=== PATIENT | male | born 1950 | race Hispanic/Latino ===

== ENCOUNTER 2018-11-11 15:42 | Inpatient (IN) | payer MEDICARE, BC ==
[2018-11-11] MEDS ORDERED: Ondansetron PF 4 MG/2 ML Vial SLOW IVP PRN (19:52)
[2018-11-11 20:20] LABS: #Basophils 0.1 thou/uL (0.0-0.2); #Eosinphils 0.3 thou/uL (0.0-0.7); #Lymphocytes 2.8 thou/uL (1.20-3.40); #Monocytes 0.7 thou/uL (0.11-0.59); #Neutrophils 6.4 thou/uL (1.40-6.50); %Basophils 0.5 % (0.0-1.0); %Eosinophils 2.7 % (0.0-10.0); %Lymphocytes 27.2 % (21.0-51.0); %Monocytes 6.7 % (0.0-10.0); %Neutrophils 62.8 % (42.0-75.0); Hemoglobin 15.4 g/dL (14.0-18.0); Mean Corpuscular HGB CONC 35.7 g/dL (32.0-36.0); Mean Corpuscular Hemoglobin 31.8 pg (27.0-31.0); Mean Platelet Volume 8.1 fL (7.4-10.4); Platelet Count 270 thou/uL (130-400); Red Blood Cell (RBC) Count 4.83 mill/uL (4.70-6.10); White Blood Cell (WBC) Count 10.2 thou/uL (4.8-10.8)
[2018-11-11 20:26] LABS: PTT 32.2 SEC (22.9-36.1); Prothrombin Time 12.8 SEC (12.0-14.7)
[2018-11-11 20:38] LABS: Anion Gap 16 mmol/L (10-20); BUN (Urea Nitrogen) 39 mg/dL (8.4-25.7); Calc. Creatinine Clearance 0 mL/min (70-130); Calcium 10.3 mg/dL (7.8-10.44); Carbon Dioxide 22 mmol/L (23-31); Chloride 102 mmol/L (98-107); Estimated GFR-MDRD 46; Glucose 160 mg/dL (80-115); Potassium 3.6 mmol/L (3.5-5.1); Sodium 136 mmol/L (136-145)
[2018-11-11] MEDS: Sodium Chloride 0.9% 1,000 ML IV SCH (21:00)
[2018-11-11] MEDS: Atorvastatin Calcium 20 MG TAB PO SCH (22:00)
[2018-11-11] MEDS: Carvedilol 3.125 MG TAB PO SCH (22:00)
[2018-11-11] MEDS: HYDROcodone/Acetaminophen 5/325 mg Tablet PO PRN (22:08)
[2018-11-11] MEDS: Lorazepam 1 MG TAB PO PRN (22:09)
[2018-11-11] MEDS: tiZANidine HCl 4 MG TAB PO PRN (22:54)
[2018-11-12 01:20] VITALS: BMI 29.4
[2018-11-12] MEDS: Morphine 2 MG/ML SYRINGE SLOW IVP PRN ×2 (01:30→18:24)
[2018-11-12] MEDS ORDERED: Fentanyl 100 MCG/2 ML VIAL ONE ×2 (06:24→11:58)
[2018-11-12] MEDS ORDERED: Thrombin 5000 UNITS/5 ML VIAL ONE (06:39)
[2018-11-12] MEDS ORDERED: Sodium Chloride 0.9% 10 ML ONE (06:39)
[2018-11-12] MEDS ORDERED: Bacitracin Zinc Ointment 30 gm TUBE ONE (06:39)
[2018-11-12] MEDS ORDERED: ceFAZolin Sodium (SDC) 2 GM/100 ML BAG ONE (06:52)
[2018-11-12] MEDS ORDERED: Famotidine/PF 20 mg/2ml Vial ONE (07:06)
[2018-11-12] MEDS ORDERED: HYDROmorphone 2 MG/ML VIAL ONE ×2 (07:55→11:09)
[2018-11-12] MEDS ORDERED: Ondansetron PF 4 MG/2 ML Vial ONE (08:00)
[2018-11-12] MEDS ORDERED: Non-Formulary Item 1 EACH (Sitagliptin Phos/Metformin Hcl [Janumet] 1 TABLET) PO SCH (08:00)
[2018-11-12] MEDS ORDERED: metFORMIN 500 MG TAB PO SCH (08:00)
[2018-11-12] MEDS ORDERED: PROPOFOL 200 MG/20 ML VIAL ONE (08:00)
[2018-11-12] MEDS ORDERED: Dexamethasone 20 MG/5 ML VIAL ONE (08:00)
[2018-11-12] MEDS ORDERED: Alogliptin 6.25 MG TAB PO SCH (08:00)
[2018-11-12] MEDS ORDERED: Glycopyrrolate 0.2 MG/ML 5 ML SYRINGE ONE (08:00)
[2018-11-12] MEDS ORDERED: PHENYLEPHRINE-NS 100 MCG/ML 10 ML SYRINGE ONE (08:00)
[2018-11-12] MEDS ORDERED: Lidocaine 1% PF 5 ML VIAL ONE (08:00)
[2018-11-12] MEDS ORDERED: Rocuronium Bromide 10 MG/ML (10ML VIAL) ONE (08:00)
--- NOTE | 2018-11-12 10:45 | OP ---
DATE OF PROCEDURE: 11/12/2018 LOCATION: OR 12. WOUND CLASSIFICATION: Type 1 wound. CONSUMER AFFAIRS SPECIALIST: Jason Sheriff PA-C PREPROCEDURE DIAGNOSIS: Multilevel lumbar stenosis with lumbar disk extrusion with low back and leg pain with gait abnormality. POSTPROCEDURE DIAGNOSIS: Multilevel lumbar stenosis with lumbar disk extrusion with low back and leg pain with gait abnormality. PROCEDURES PERFORMED: 1. L2-L3, L3-L4, and L4-L5 laminectomies, partial facetectomies, and foraminotomies. 2. L2-L3 diskectomy. 3. Use of operative microscope for microdissection. 4. Left L5-S1 hemilaminotomy and foraminotomy. DESCRIPTION OF PROCEDURE: After informed consent was obtained from the patient, the patient was brought to the OR. Proper patient, pause, and identification were carried out. He was placed under excellent general endotracheal anesthesia and positioned prone on the OR table. All appropriate points were padded. We identified the L2, L3, L4, L5, and S1 dorsal spines and lamina. A linear lynda was made over this region. This area was sterilely cleansed, prepared, and draped. Proper patient, pause, and identification were carried out. The wound was then opened with a combination of sharp, monopolar, and blunt dissection. The L2, L3, L4, L5, and S1 dorsal spines and lamina were exposed. Localization film confirmed area of interest. We then performed L2, L3, L4, and L5 laminectomies, partial facetectomies, and foraminotomies with excellent decompression of common dural tube and nerve roots. We then did a left L5-S1 hemilaminotomy and foraminotomy for decompression of left S1 nerve root. We then turned our attention for the use of operative microscope for microdissection with gentle retraction, working around the L3 nerve roots. We removed multiple disk fragments and had excellent decompression of common dural tube and episcopalian of CSF flow. Copious irrigation occurred throughout as did maximizing hemostasis. There was no CSF leak. The wound was closed in anatomic layers following sprinkling of vancomycin powder. The patient was then emerged from anesthesia. Job ID: [id number]
[2018-11-12] MEDS ORDERED: HYDROmorphone 2 MG/ML VIAL SLOW IVP PRN (10:57)
[2018-11-12] MEDS ORDERED: Meperidine HCl/PF 25 MG/ML VIAL SLOW IVP PRN (10:57)
[2018-11-12] MEDS ORDERED: PACU-Morphine 4MG/ML VIAL SLOW IVP PRN (10:57)
[2018-11-12] MEDS ORDERED: Promethazine HCl 25 MG/ML VIAL SLOW IVP PRN (10:57)
[2018-11-12] MEDS ORDERED: Ondansetron HCl/PF 4 MG/2 ML Vial IVP PRN (10:57)
[2018-11-12] MEDS ORDERED: Morphine Sulfate 2 MG/ML SYRINGE SLOW IVP PRN (10:57)
[2018-11-12] MEDS ORDERED: Promethazine HCl 25 MG/ML VIAL IM PRN (10:57)
[2018-11-12] MEDS: Lisinopril/Hydrochlorothiazide 20 mg/12.5 mg Tablet PO SCH (13:15)
[2018-11-12] MEDS: Carvedilol 3.125 MG TAB PO SCH ×2 (13:15→21:47)
[2018-11-12] MEDS: Pioglitazone HCl 15 MG TAB PO SCH (13:15)
[2018-11-12] MEDS ORDERED: Dextrose 50% Abboject 50 ML SYRINGE SLOW IVP PRN (13:17)
[2018-11-12] MEDS ORDERED: Dextrose 5% in Water 1,000 ML IV PRN (13:17)
[2018-11-12] MEDS ORDERED: hydrALAZINE 20 MG/ML VIAL SLOW IVP PRN (13:21)
[2018-11-12] MEDS: HYDROcodone/Acetaminophen 5/325 mg Tablet PO PRN ×2 (13:42→21:47)
[2018-11-12] MEDS: Sodium Chloride 0.9% 1,000 ML IV SCH (13:42)
[2018-11-12] MEDS: Insulin Regular 300 UNITS/3 ML VIAL SC PRN ×3 (13:55→21:47)
[2018-11-12] MEDS: CEFAZOLIN 2 GM, Admixture Fee 1 EACH in Sodium Chloride 0.9% 100 ML IVPB SCH ×2 (16:26→23:54)
[2018-11-12] MEDS: Alogliptin 6.25 MG TAB PO SCH (18:24)
[2018-11-12] MEDS ORDERED: Prevnar 13-Val Conj/PF 0.5 ML SYRINGE IM ONE (21:00)
[2018-11-12] MEDS: Atorvastatin Calcium 20 MG TAB PO SCH (21:47)
[2018-11-13] MEDS: HYDROcodone/Acetaminophen 5/325 mg Tablet PO PRN ×3 (04:31→16:31)
[2018-11-13] MEDS: Acetaminophen 325 MG TAB PO PRN ×2 (04:31→21:25)
[2018-11-13 05:44] LABS: Hemoglobin 11.8 g/dL (14.0-18.0); Mean Corpuscular HGB CONC 35.4 g/dL (32.0-36.0); Mean Corpuscular Hemoglobin 31.8 pg (27.0-31.0); Mean Corpuscular Volume 89.8 fL (78.0-98.0); Mean Platelet Volume 8.1 fL (7.4-10.4); Platelet Count 244 thou/uL (130-400); RBC Distribution Width 12.1 % (11.5-14.5); White Blood Cell (WBC) Count 14.4 thou/uL (4.8-10.8)
[2018-11-13 06:08] LABS: Anion Gap 13 mmol/L (10-20); BUN (Urea Nitrogen) 29 mg/dL (8.4-25.7); Calc. Creatinine Clearance 87 mL/min (70-130); Calcium 9.1 mg/dL (7.8-10.44); Carbon Dioxide 22 mmol/L (23-31); Chloride 106 mmol/L (98-107); Estimated GFR-MDRD 77; Glucose 153 mg/dL (80-115); Potassium 3.4 mmol/L (3.5-5.1); Sodium 138 mmol/L (136-145)
[2018-11-13] MEDS: CEFAZOLIN 2 GM, Admixture Fee 1 EACH in Sodium Chloride 0.9% 100 ML IVPB SCH ×2 (06:58→16:33)
[2018-11-13] MEDS: Insulin Regular 300 UNITS/3 ML VIAL SC PRN ×4 (06:58→21:26)
--- NOTE | 2018-11-13 08:13 | HP ---
CHIEF COMPLAINT: Multilevel lumbar spinal canal stenosis with low back pain and leg pain, causing ataxia and paresthesia. HISTORY OF PRESENT ILLNESS: Mr. Silverio is a very pleasant 68-year-old gentleman with past medical history severe lumbar spinal stenosis, which had been affecting his quality of life and interfering with activities of daily living. The patient has tried medical management for this and thus far it has failed. The patient brought in for elective lumbar spinal surgery on 11/12/[address] Hernandez, Please see full operative report for details. The patient tolerated the procedure well without intraoperative complications. I find the patient in the orthopedic unit post operatively. The patient is lying in bed, resting comfortably surrounded by his family and friends. The patient does have some pain postoperatively, though it is overly controlled on current medication regimen. The patient is breathing well. The patient states that prior to surgery he was having difficulty lifting his left leg with severe numbness and tingling, however, now with the surgery, he states that he is feeling much better. He is able to lift leg off the bed without difficulty. No longer having numbness and tingling. Able to void bladder without difficulty. Has not had BM yet. PAST MEDICAL HISTORY: 1. Severe lumbar spinal stenosis 2. Ataxia - secondary to above 3. Low back pain - secondary to above 4. LE paresthesia - secondary to above 5. DM - uncontrolled 6. HTN 7. HLD 8. Osteoarthritis REVIEW OF SYSTEMS: A 10-point review of systems was completed and negative except as mentioned in history of present illness. MEDICATIONS: 1. Omeprazole 40 mg p.o. daily. 2. Jardiance 10 mg p.o. daily. 3. Tramadol 50 mg p.o. four times per day p.r.n. 4. Simvastatin 40 mg p.o. q.a.m. 5. [place] 25 mg p.o. daily. 6. Carvedilol 25 mg one tab p.o. b.i.d. 7. Zanaflex 4 mg one p.o. q.8 p.r.n. muscle spasm. 8. [place] 5/325 one tab p.o. four times per day p.r.n. 9. Janumet one tab p.o. b.i.d. ALLERGIES: NO KNOWN DRUG ALLERGIES. PHYSICAL EXAMINATION: VITAL SIGNS: Temperature 97.9, pulse 71, respirations 16, 02 saturations 98% on room air, blood pressure 146/72. GENERAL: The patient is well developed, alert and oriented x3, in no apparent distress. HEENT: Head is atraumatic, normocephalic. PERRLA, EOMI. Oropharynx is without exudates or inflammation. CARDIAC: S1, S2 present. No appreciated murmurs, rubs, or gallops. LUNGS: Clear to auscultation bilaterally without rales, rhonchi, or wheezing. ABDOMEN: Soft, nontender, nondistended. No guarding or rigidity. BACK: There is a clean and dry bandage over the lumbar spine that was freshly placed, but does not demonstrate any blood soaking or drainage. EXTREMITIES: No significant edema. Pulses intact. NEUROLOGIC: Cranial nerves 2 through 12 grossly intact. Strength is slightly diminished in the lower extremities, though the patient states that it is much better than before the operation. Strength in the upper extremities is preserved and symmetric. SKIN: No lesions or rashes. PSYCHIATRIC: Normal affect. The patient is alert and oriented to self, location , time, and situation. LABORATORY DATA: WBC 10.2, RBC 4.8, hemoglobin 15.4, hematocrit 43.0, platelets 270. PT 12.8, INR 1.0, PTT 32.2. Sodium 136, potassium 3.6, chloride 102, carbon dioxide 22, anion gap 12, blood urea nitrogen 39, creatinine 1.5, estimated GFR 46, glucose 160, calcium 10.3. ASSESSMENT: 1. Severe lumbar spinal canal stenosis with multilevel lumbar disk protrusion resulting in low back pain. 2. Low back pain. 3. Ataxia. 4. Lower extremity paresthesias. 5. Diabetes mellitus, uncontrolled. 6. Hypertension. 7. Hyperlipidemia. PLAN: 1. Admit to orthopedic unit. 2. Surgery following, recommendations, perioperative care, pain control, PT/ OT 3. Continue home medications as able. 4. Insulin sliding scale coverage to control hyperglycemia. 5. P.r.n. medications for elevated blood pressure as needed. 6. DVT prophylaxis and GI prophylaxis. 7. Incentive spirometer q.1 hour while awake. Thank you Dr. Hernandez for allowing us to participate in the care of this patient. Job ID: [id number] [facility]
[2018-11-13] MEDS: Pioglitazone HCl 15 MG TAB PO SCH (08:34)
[2018-11-13] MEDS: Alogliptin 6.25 MG TAB PO SCH ×2 (08:34→16:30)
[2018-11-13] MEDS: metFORMIN 500 MG TAB PO SCH ×2 (08:34→16:30)
[2018-11-13] MEDS: tiZANidine HCl 4 MG TAB PO PRN ×2 (08:34→19:07)
[2018-11-13] MEDS: Lisinopril/Hydrochlorothiazide 20 mg/12.5 mg Tablet PO SCH (08:34)
[2018-11-13] MEDS: Carvedilol 3.125 MG TAB PO SCH ×2 (08:34→21:26)
[2018-11-13] MEDS: traMADol HCl 50 MG TAB PO PRN ×2 (08:35→15:54)
--- NOTE | 2018-11-13 09:31 | PRG ---
DATE OF SERVICE: 11/13/2018 Mr. Silverio is postoperative day 1 from multilevel lumbar decompression for cauda equina compression. He states he is doing very well and is very happy at the surgery, moves his lower extremities without deficit. He is already mobilizing and voiding. He does not have satisfactory help at home as he continues to recover from severe stenosis of his cauda equina and recent falls as such I have recommended inpatient rehab. Job ID: [id number]
[2018-11-13] MEDS: Sodium Chloride 0.9% 1,000 ML IV SCH ×2 (10:45→22:22)
--- NOTE | 2018-11-13 11:59 | PDOC.HOSPP ---
- Subjective Subjective: Patient seen and examined. Progressing well post op. No longer having numbness and tingling in the lower extremity. Able to get up out of bed to go to the restroom. Expected post operative pain. We will plan for rehab placement if able through insurance. - Objective Vital Signs & Weight: Vital Signs (12 hours) Temp Pulse Resp BP BP Pulse Ox 11/13/18 11:41 99.0 F 71 16 107/62 94 L 11/13/18 08:34 80 161/75 H 11/13/18 07:17 98.3 F 80 16 161/75 H 95 11/13/18 03:33 97.9 F 80 16 147/72 H 98 Weight Weight 188 lb I&O: 11/12/18 11/13/18 11/14/18 06:59 06:59 06:59 Intake Total 1 4095 Output Total 2150 Balance 1 1945 Result Diagrams: 11/13/18 04:50 11/13/18 04:50 Additional Labs: Accuchecks 11/13/18 11/13/18 11/12/18 11:43 05:39 21:08 POC Glucose 235 H 187 H 246 H 11/12/18 11/12/18 16:39 13:43 POC Glucose 388 H 346 H ROS - Medication Medications: Active Medications Generic Name Dose Route Start Last Admin Trade Name Freq PRN Reason Stop Dose Admin Acetaminophen 650 mg 11/11/18 19:50 11/13/18 04:31 Tylenol PO 650 mg Q4H PRN Administration Headache/Fever/Mild Pain Hydrocodone Bitart/Acetaminophen 1 tab 11/11/18 19:51 11/13/18 10:43 [place] 5/325 PO 1 tab Q6H PRN Administration MODERATE Pain Alogliptin Benzoate 12.5 mg 11/12/18 17:00 11/13/18 08:34 Alogliptin PO 12.5 mg BID-WM CATHERINE Administration Atorvastatin Calcium 20 mg 11/11/18 21:00 11/12/18 21:47 Lipitor PO 20 mg HS CATHERINE Administration Carvedilol 3.125 mg 11/11/18 21:00 11/13/18 08:34 Coreg PO 3.125 mg BID CATHERINE Administration Lisinopril/HCTZ 1 tab 11/12/18 09:00 11/13/18 08:34 Prinizide 20-12.5 PO 1 tab DAILY CATHERINE Administration Cefazolin Sodium 2 gm/ 100 mls @ 200 mls/hr 11/12/18 15:00 11/13/18 06:58 Miscellaneous Medication 1 IVPB 11/13/18 15:29 100 mls each/ Sodium Chloride 0700,1500,2300 CATHERINE Administration Insulin Human Regular 0 units 11/12/18 13:17 11/13/18 06:58 Humulin R SC 2 unit .MILD SLIDING SCALE PRN Administration Mild Correctional Scale Lorazepam 0.5 mg 11/11/18 20:55 11/11/18 22:09 Ativan PO 0.5 mg Q6H PRN Administration Anxiety/Agitation Metformin HCl 500 mg 11/13/18 08:00 11/13/18 08:34 Glucophage PO 500 mg BID-WM CATHERINE Administration Morphine Sulfate 2 mg 11/11/18 19:52 11/12/18 18:24 Morphine SLOW IVP 2 mg Q1H PRN Administration .SEVERE PAIN Pantoprazole Sodium 40 mg 11/12/18 09:00 11/13/18 08:34 Protonix PO 40 mg DAILY CATHERINE Administration Pioglitazone HCl 30 mg 11/12/18 09:00 11/13/18 08:34 Actos PO 30 mg DAILY CATHERINE Administration Sodium Chloride 10 ml 11/11/18 21:00 11/13/18 10:45 Flush - Normal Saline IVF Not Given Q12HR CATHERINE Tizanidine HCl 4 mg 11/11/18 19:52 11/13/18 08:34 Zanaflex PO 4 mg Q8H PRN Administration .MUSCLE SPASM Tramadol HCl 50 mg 11/11/18 19:50 11/13/18 08:35 Ultram PO 50 mg Q6H PRN Administration MILD Pain - Exam NAD, awake alert Eye: PERRL ENT: moist mucosa Neck: supple Heart: RRR, no rubs Respiratory: CTAB, no wheezes, no rales Gastrointestinal: soft, non-tender, non-distended, no rigidity Extremities: no edema Skin: normal turgor, no lesions, no rashes Neurological: CN's grossly intact, normal sensation to touch, no focal deficits Musculoskeletal: no muscle wasting Psychiatric: normal affect, A&O x 3 Hosp A/P (1) Lumbar spinal stenosis Code(s): M48.061 - SPINAL STENOSIS, LUMBAR REGION WITHOUT NEUROGENIC KAVIN Status: Acute (2) Back pain Code(s): M54.9 - DORSALGIA, UNSPECIFIED Status: Acute (3) Ataxia Code(s): R27.0 - ATAXIA, UNSPECIFIED Status: Acute (4) Paresthesia and pain of left extremity Code(s): M79.609 - PAIN IN UNSPECIFIED LIMB; R20.2 - PARESTHESIA OF SKIN Status: Acute (5) Hypertension, accelerated Code(s): I10 - ESSENTIAL (PRIMARY) HYPERTENSION Status: Acute (6) Type II diabetes mellitus Status: Acute - Plan Plan: Surgery following, recommendations appreciated Post op care Pain control PT/OT Rehab eval Stress reactive leukocytosis expected after surgery. Afebrile, no signs of acute infection. Blood sugar control with home medications and ISS Continue home medications as able DVT PPX
[2018-11-13] MEDS ORDERED: Sodium Chloride 0.9% 500 ML IV SCH (20:30)
[2018-11-13] MEDS: Atorvastatin Calcium 20 MG TAB PO SCH (21:25)
--- NOTE | 2018-11-13 23:00 | PDOC.EVN ---
Event Note - Event Note Event Note: Patient was hypotensive into the 80s systolic and symptomatic reporting dizziness and clamminess. Patient reports low fluid intake as he did not want to get up to use the restroom. He was given 1 L fluid bolus, and BP and symptoms improving. BP now 97 systolic and symptoms resolved. Will continue IV fluid resuscitation overnight.
[2018-11-14] MEDS: Acetaminophen 325 MG TAB PO PRN ×2 (06:27→21:23)
[2018-11-14] MEDS: Sodium Chloride 0.9% 1,000 ML IV SCH ×3 (06:27→21:27)
[2018-11-14] MEDS: metFORMIN 500 MG TAB PO SCH ×2 (08:01→17:25)
[2018-11-14] MEDS: Pioglitazone HCl 15 MG TAB PO SCH (08:01)
[2018-11-14] MEDS: Alogliptin 6.25 MG TAB PO SCH ×2 (08:01→17:25)
[2018-11-14] MEDS: HYDROcodone/Acetaminophen 5/325 mg Tablet PO PRN ×2 (09:27→16:41)
[2018-11-14] MEDS: Insulin Regular 300 UNITS/3 ML VIAL SC PRN (12:28)
[2018-11-14] MEDS: traMADol HCl 50 MG TAB PO PRN (12:29)
[2018-11-14] MEDS: tiZANidine HCl 4 MG TAB PO PRN (12:29)
--- NOTE | 2018-11-14 13:29 | PDOC.HOSPP ---
- Subjective Encounter Date: 11/14/18 Encounter Time: 07:20 Subjective: Pt seen for followup re: DM2. Overnight events noted. He feels better today. - Objective Vital Signs & Weight: Vital Signs (12 hours) Temp Pulse Resp BP Pulse Ox 11/14/18 11:19 98.2 F 71 16 128/67 97 11/14/18 09:20 68 130/68 11/14/18 07:31 98.3 F 73 18 125/63 98 11/14/18 03:42 97.9 F 78 16 125/64 98 Weight Weight 188 lb I&O: 11/13/18 11/14/18 11/15/18 06:59 06:59 06:59 Intake Total 4095 1425 2425 Output Total 2150 350 800 Balance 1945 1075 1625 Result Diagrams: 11/13/18 04:50 11/13/18 04:50 Additional Labs: Accuchecks 11/14/18 11/14/18 11/13/18 11:08 05:43 20:20 POC Glucose 182 H 144 H 267 H 11/13/18 15:24 POC Glucose 193 H Labs and MARs reviewed by me ROS - Review of Systems Cardiovascular: denies: chest pain, palpitations, orthopnea, paroxysmal noc. dyspnea, edema, light headedness Gastrointestinal: denies: nausea, vomitting, abdominal pain, diarrhea, constipation, melena, hematochezia - Medication Medications: Active Medications Generic Name Dose Route Start Last Admin Trade Name Freq PRN Reason Stop Dose Admin Acetaminophen 650 mg 11/11/18 19:50 11/14/18 06:27 Tylenol PO 650 mg Q4H PRN Administration Headache/Fever/Mild Pain Hydrocodone Bitart/Acetaminophen 1 tab 11/11/18 19:51 11/14/18 09:27 [place] 5/325 PO 1 tab Q6H PRN Administration MODERATE Pain Alogliptin Benzoate 12.5 mg 11/12/18 17:00 11/14/18 08:01 Alogliptin PO 12.5 mg BID-WM CATHERINE Administration Atorvastatin Calcium 20 mg 11/11/18 21:00 11/13/18 21:25 Lipitor PO 20 mg HS CATHERINE Administration Carvedilol 3.125 mg 11/11/18 21:00 11/13/18 21:26 Coreg PO Not Given BID CATHERINE Lisinopril/HCTZ 1 tab 11/12/18 09:00 11/13/18 08:34 Prinizide 20-12.5 PO 1 tab DAILY CATHERINE Administration Sodium Chloride 1,000 mls @ 125 mls/hr 11/13/18 22:00 11/14/18 06:27 Normal Saline 0.9% IV 1,000 mls .Q8H CATHERINE Administration Insulin Human Regular 0 units 11/12/18 13:17 11/14/18 12:28 Humulin R SC 2 unit .MILD SLIDING SCALE PRN Administration Mild Correctional Scale Lorazepam 0.5 mg 11/11/18 20:55 11/11/18 22:09 Ativan PO 0.5 mg Q6H PRN Administration Anxiety/Agitation Metformin HCl 500 mg 11/13/18 08:00 11/14/18 08:01 Glucophage PO 500 mg BID-WM CATHERINE Administration Morphine Sulfate 2 mg 11/11/18 19:52 11/12/18 18:24 Morphine SLOW IVP 2 mg Q1H PRN Administration .SEVERE PAIN Pantoprazole Sodium 40 mg 11/12/18 09:00 11/14/18 08:01 Protonix PO 40 mg DAILY CATHERINE Administration Pioglitazone HCl 30 mg 11/12/18 09:00 11/14/18 08:01 Actos PO 30 mg DAILY CATHERINE Administration Sodium Chloride 10 ml 11/11/18 21:00 11/14/18 09:29 Flush - Normal Saline IVF Not Given Q12HR [facility] Tizanidine HCl 4 mg 11/11/18 19:52 11/14/18 12:29 Zanaflex PO 4 mg Q8H PRN Administration .MUSCLE SPASM Tramadol HCl 50 mg 11/11/18 19:50 11/14/18 12:29 Ultram PO 50 mg Q6H PRN Administration MILD Pain - Exam NAD Eye: anicteric sclera ENT: moist mucosa Neck: supple Heart: RRR Respiratory: CTAB Gastrointestinal: soft, non-tender Skin: normal turgor Psychiatric: normal affect, normal behavior Hosp A/P (1) Type II diabetes mellitus Status: Chronic (2) Hypotension Status: Resolved - Plan Hypotension resolved, pt maintaining good fluid intake. Blood sugars high, switch to moderate insulin sliding scale.
[2018-11-14] MEDS: Carvedilol 3.125 MG TAB PO SCH ×2 (15:20→21:26)
[2018-11-14] MEDS: Lisinopril/Hydrochlorothiazide 20 mg/12.5 mg Tablet PO SCH (15:20)
[2018-11-14] MEDS: HumaLOG 300 UNITS/3 ML VIAL SC PRN ×2 (17:24→21:27)
[2018-11-14] MEDS: Atorvastatin Calcium 20 MG TAB PO SCH (21:25)
[2018-11-15] MEDS: HYDROcodone/Acetaminophen 5/325 mg Tablet PO PRN ×3 (05:48→18:03)
[2018-11-15] MEDS: Sodium Chloride 0.9% 1,000 ML IV SCH ×3 (08:00→22:20)
[2018-11-15] MEDS: Lisinopril/Hydrochlorothiazide 20 mg/12.5 mg Tablet PO SCH (08:49)
[2018-11-15] MEDS: Alogliptin 6.25 MG TAB PO SCH ×2 (08:49→18:03)
[2018-11-15] MEDS: Carvedilol 3.125 MG TAB PO SCH ×2 (08:49→20:29)
[2018-11-15] MEDS: metFORMIN 500 MG TAB PO SCH ×2 (08:49→18:03)
[2018-11-15] MEDS: Pioglitazone HCl 15 MG TAB PO SCH (08:49)
[2018-11-15] MEDS: traMADol HCl 50 MG TAB PO PRN (08:50)
[2018-11-15] MEDS: HumaLOG 300 UNITS/3 ML VIAL SC PRN (12:18)
--- NOTE | 2018-11-15 17:34 | PDOC.HOSPP ---
- Subjective Encounter Date: 11/15/18 Encounter Time: 17:32 Subjective: Pt seen for followup re: diabetes mellitus. Feels well, no complaints. - Objective Vital Signs & Weight: Vital Signs (12 hours) Temp Pulse Resp BP BP BP Pulse Ox 11/15/18 16:58 172/83 H 11/15/18 15:56 98.2 F 67 16 172/83 H 95 11/15/18 11:11 98.3 F 69 16 158/78 H 97 11/15/18 08:49 71 165/84 H 11/15/18 07:52 98.1 F 71 18 168/84 H 97 Weight Weight 188 lb I&O: 11/14/18 11/15/18 11/16/18 06:59 06:59 06:59 Intake Total 1425 7690 Output Total 350 2925 Balance 1075 4874 Result Diagrams: 11/13/18 04:50 11/13/18 04:50 Additional Labs: Accuchecks 11/15/18 11/15/18 11/15/18 15:57 11:18 05:46 POC Glucose 146 H 159 H 119 H 11/14/18 20:44 POC Glucose 216 H labs and MARs reviewed by me GALLEGOS - Review of Systems Cardiovascular: denies: chest pain, palpitations, orthopnea, paroxysmal noc. dyspnea, edema, light headedness Gastrointestinal: denies: nausea, vomitting, abdominal pain, diarrhea, constipation, melena, hematochezia - Medication Medications: Active Medications Generic Name Dose Route Start Last Admin Trade Name Freq PRN Reason Stop Dose Admin Acetaminophen 650 mg 11/11/18 19:50 11/14/18 21:23 Tylenol PO 650 mg Q4H PRN Administration Headache/Fever/Mild Pain Hydrocodone Bitart/Acetaminophen 1 tab 11/11/18 19:51 11/15/18 12:18 [place] 5/325 PO 1 tab Q6H PRN Administration MODERATE Pain Alogliptin Benzoate 12.5 mg 11/12/18 17:00 11/15/18 08:49 Alogliptin PO 12.5 mg BID-WM CATHERINE Administration Atorvastatin Calcium 20 mg 11/11/18 21:00 11/14/18 21:25 Lipitor PO 20 mg HS CATHERINE Administration Carvedilol 3.125 mg 11/11/18 21:00 11/15/18 08:49 Coreg PO 3.125 mg BID CATHERINE Administration Lisinopril/HCTZ 1 tab 11/12/18 09:00 11/15/18 08:49 Prinizide 20-12.5 PO 1 tab DAILY CATHERINE Administration Hydralazine HCl 10 mg 11/12/18 13:21 11/15/18 16:58 Apresoline SLOW IVP 10 mg Q4H PRN Administration SBP GREATER THAN 160 Sodium Chloride 1,000 mls @ 125 mls/hr 11/13/18 22:00 11/15/18 08:00 Normal Saline 0.9% IV 1,000 mls .Q8H CATHERINE Administration Insulin Human Lispro 0 units 11/15/18 08:26 11/15/18 12:18 Humalog SC 3 unit .AGGRESSIVE SLIDING PRN Administration Aggressive Correctional Scale Lorazepam 0.5 mg 11/11/18 20:55 11/11/18 22:09 Ativan PO 0.5 mg Q6H PRN Administration Anxiety/Agitation Metformin HCl 500 mg 11/13/18 08:00 11/15/18 08:49 Glucophage PO 500 mg BID-WM CATHERINE Administration Morphine Sulfate 2 mg 11/11/18 19:52 11/12/18 18:24 Morphine SLOW IVP 2 mg Q1H PRN Administration .SEVERE PAIN Pantoprazole Sodium 40 mg 11/12/18 09:00 11/15/18 08:49 Protonix PO 40 mg DAILY CATHERINE Administration Pioglitazone HCl 30 mg 11/12/18 09:00 11/15/18 08:49 Actos PO 30 mg DAILY CATHERINE Administration Sodium Chloride 10 ml 11/11/18 21:00 11/15/18 08:52 Flush - Normal Saline IVF Not Given Q12HR [facility] Tizanidine HCl 4 mg 11/11/18 19:52 11/14/18 12:29 Zanaflex PO 4 mg Q8H PRN Administration .MUSCLE SPASM Tramadol HCl 50 mg 11/11/18 19:50 11/15/18 08:50 Ultram PO 50 mg Q6H PRN Administration MILD Pain - Exam NAD Eye: anicteric sclera ENT: normocephalic atraumatic Neck: supple Heart: RRR Respiratory: CTAB Gastrointestinal: soft Neurological: no weakness Psychiatric: normal affect, normal behavior Hosp A/P (1) Type II diabetes mellitus Status: Chronic (2) Hypotension Status: Resolved - Plan PT/OT, out of bed/ambulate pt maintaining good oral intake. Improved blood sugar control. Wants to go to [facility].
[2018-11-15] MEDS: Atorvastatin Calcium 20 MG TAB PO SCH (20:29)
[2018-11-16] MEDS: HYDROcodone/Acetaminophen 5/325 mg Tablet PO PRN ×3 (00:51→19:05)
[2018-11-16] MEDS: Sodium Chloride 0.9% 1,000 ML IV SCH ×3 (08:06→20:07)
[2018-11-16] MEDS: Alogliptin 6.25 MG TAB PO SCH ×2 (08:06→17:13)
[2018-11-16] MEDS: Carvedilol 3.125 MG TAB PO SCH ×2 (08:06→20:50)
[2018-11-16] MEDS: Pioglitazone HCl 15 MG TAB PO SCH (08:06)
[2018-11-16] MEDS: metFORMIN 500 MG TAB PO SCH ×2 (08:06→17:13)
[2018-11-16] MEDS: Lisinopril/Hydrochlorothiazide 20 mg/12.5 mg Tablet PO SCH (08:06)
[2018-11-16] MEDS: HumaLOG 300 UNITS/3 ML VIAL SC PRN (11:19)
--- NOTE | 2018-11-16 12:25 | PRG ---
DATE OF SERVICE: 11/16/2018 Mr. Silverio is now postop day #5 following lumbar decompression for cauda equina. He is stable from yesterday. We are just still waiting on placement and Case Management to check progress on his placement. ADDENDUM: His blood glucose was noted to be 199. This will need more He was admitted for aggressive correction and will depend on our hospitalist colleagues for this purpose. Job ID: [id number]
--- NOTE | 2018-11-16 17:21 | PDOC.HOSPP ---
- Subjective Encounter Date: 11/16/18 Encounter Time: 08:00 Subjective: Pt seen for followup re: DM type II. No complaints today. - Objective Vital Signs & Weight: Vital Signs (12 hours) Temp Pulse Resp BP Pulse Ox 11/16/18 16:00 98 11/16/18 15:19 98.1 F 73 16 118/71 98 11/16/18 12:00 98 11/16/18 11:11 98.1 F 68 16 146/78 H 98 11/16/18 08:06 66 11/16/18 08:00 98 11/16/18 07:28 98.4 F 66 18 152/73 H 98 Weight Weight 188 lb I&O: 11/15/18 11/16/18 11/17/18 06:59 06:59 06:59 Intake Total 7690 3935 Output Total 2925 2600 Balance 4765 1335 Result Diagrams: 11/13/18 04:50 11/13/18 04:50 Additional Labs: Accuchecks 11/16/18 11/16/18 11/15/18 15:24 11:07 21:09 POC Glucose 134 H 191 H 199 H Labs and MARs reviewed by ROS - Review of Systems Cardiovascular: denies: chest pain, palpitations, orthopnea, paroxysmal noc. dyspnea, edema, light headedness Gastrointestinal: denies: nausea, vomitting, abdominal pain, diarrhea, constipation, melena, hematochezia - Medication Medications: Active Medications Generic Name Dose Route Start Last Admin Trade Name Freq PRN Reason Stop Dose Admin Acetaminophen 650 mg 11/11/18 19:50 11/14/18 21:23 Tylenol PO 650 mg Q4H PRN Administration Headache/Fever/Mild Pain Hydrocodone Bitart/Acetaminophen 1 tab 11/11/18 19:51 11/16/18 07:00 [place] 5/325 PO 1 tab Q6H PRN Administration MODERATE Pain Alogliptin Benzoate 12.5 mg 11/12/18 17:00 11/16/18 17:13 Alogliptin PO 12.5 mg BID-WM CATHERINE Administration Atorvastatin Calcium 20 mg 11/11/18 21:00 11/15/18 20:29 Lipitor PO 20 mg HS CATHERINE Administration Carvedilol 3.125 mg 11/11/18 21:00 11/16/18 08:06 Coreg PO 3.125 mg BID CATHERINE Administration Lisinopril/HCTZ 1 tab 11/12/18 09:00 11/16/18 08:06 Prinizide 20-12.5 PO 1 tab DAILY CATHERINE Administration Hydralazine HCl 10 mg 11/12/18 13:21 11/15/18 16:58 Apresoline SLOW IVP 10 mg Q4H PRN Administration SBP GREATER THAN 160 Sodium Chloride 1,000 mls @ 125 mls/hr 11/13/18 22:00 11/16/18 17:13 Normal Saline 0.9% IV Not Given .Q8H CATHERNIE Insulin Human Lispro 0 units 11/15/18 08:26 11/16/18 11:19 Humalog SC 3 unit .AGGRESSIVE SLIDING PRN Administration Aggressive Correctional Scale Lorazepam 0.5 mg 11/11/18 20:55 11/11/18 22:09 Ativan PO 0.5 mg Q6H PRN Administration Anxiety/Agitation Metformin HCl 500 mg 11/13/18 08:00 11/16/18 17:13 Glucophage PO 500 mg BID-WM CATHERINE Administration Morphine Sulfate 2 mg 11/11/18 19:52 11/12/18 18:24 Morphine SLOW IVP 2 mg Q1H PRN Administration .SEVERE PAIN Pantoprazole Sodium 40 mg 11/12/18 09:00 11/16/18 08:06 Protonix PO 40 mg DAILY CATHERINE Administration Pioglitazone HCl 30 mg 11/12/18 09:00 11/16/18 08:06 Actos PO 30 mg DAILY CATHERINE Administration Sodium Chloride 10 ml 11/11/18 21:00 11/16/18 08:07 Flush - Normal Saline IVF 10 ml Q12HR CATHERINE Administration Tizanidine HCl 4 mg 11/11/18 19:52 11/14/18 12:29 Zanaflex PO 4 mg Q8H PRN Administration .MUSCLE SPASM Tramadol HCl 50 mg 11/11/18 19:50 11/15/18 08:50 Ultram PO 50 mg Q6H PRN Administration MILD Pain - Exam NAD Eye: anicteric sclera ENT: moist mucosa Neck: supple Heart: RRR Respiratory: CTAB Gastrointestinal: soft, non-tender Psychiatric: normal affect, normal behavior Hosp A/P (1) Type II diabetes mellitus Status: Chronic (2) Hypotension Status: Resolved - Plan PT/OT, out of bed/ambulate Continue accuchecks, insulin sliding scale. Awaiting In[facility] Rehab
[2018-11-16] MEDS: Atorvastatin Calcium 20 MG TAB PO SCH (20:50)
[2018-11-17] MEDS: HYDROcodone/Acetaminophen 5/325 mg Tablet PO PRN ×4 (01:51→20:59)
[2018-11-17] MEDS: Pioglitazone HCl 15 MG TAB PO SCH (08:56)
[2018-11-17] MEDS: Lisinopril/Hydrochlorothiazide 20 mg/12.5 mg Tablet PO SCH (08:56)
[2018-11-17] MEDS: metFORMIN 500 MG TAB PO SCH ×2 (08:56→17:36)
[2018-11-17] MEDS: Alogliptin 6.25 MG TAB PO SCH ×2 (08:56→17:36)
[2018-11-17] MEDS: Carvedilol 3.125 MG TAB PO SCH ×2 (08:57→20:59)
[2018-11-17] MEDS: Sodium Chloride 0.9% 1,000 ML IV SCH ×2 (08:57→16:35)
--- NOTE | 2018-11-17 09:43 | PRG ---
DATE OF SERVICE: 11/17/2018 Mr. Silverio is now hospital day 6, status post lumbar decompression for cauda equina. He is resting comfortably in his bed. He has been mobilizing with a walker. He reports minimal to no pain. He had questions about transitioning from bed to standing and I answered those. Ultimately, we are waiting on final disposition towards inpatient rehab. Once that has been finalized, he can transfer anytime. Job ID: [id number]
[2018-11-17] MEDS: HumaLOG 300 UNITS/3 ML VIAL SC PRN ×2 (11:56→17:37)
--- NOTE | 2018-11-17 18:19 | PDOC.HOSPP ---
- Subjective Encounter Date: 11/17/18 Encounter Time: 12:00 Subjective: Pt seen for followup re: diabetes mellitus. No complaints today. - Objective Vital Signs & Weight: Vital Signs (12 hours) Temp Pulse Resp BP BP BP Pulse Ox 11/17/18 16:00 96 11/17/18 15:38 97.9 F 81 16 107/58 L 96 11/17/18 12:00 98.5 F 70 18 153/75 H 96 11/17/18 08:56 68 11/17/18 08:00 97 11/17/18 07:42 98.6 F 68 18 147/79 H 97 Weight Weight 188 lb I&O: 11/16/18 11/17/18 11/18/18 06:59 06:59 06:59 Intake Total 3935 1750 1120 Output Total 2600 2125 700 Balance 1335 -375 420 Result Diagrams: 11/13/18 04:50 11/13/18 04:50 Additional Labs: Accuchecks 11/17/18 11/17/18 15:42 11:42 POC Glucose 256 H 222 H Labs and MARs reviewed by me ROS - Review of Systems Constitutional: denies: fever, chills, sweats, weakness, malaise Cardiovascular: denies: chest pain, palpitations, orthopnea, paroxysmal noc. dyspnea, edema, light headedness - Medication Medications: Active Medications Generic Name Dose Route Start Last Admin Trade Name Freq PRN Reason Stop Dose Admin Acetaminophen 650 mg 11/11/18 19:50 11/14/18 21:23 Tylenol PO 650 mg Q4H PRN Administration Headache/Fever/Mild Pain Hydrocodone Bitart/Acetaminophen 1 tab 11/11/18 19:51 11/17/18 15:20 [place] 5/325 PO 1 tab Q6H PRN Administration MODERATE Pain Alogliptin Benzoate 12.5 mg 11/12/18 17:00 11/17/18 17:36 Alogliptin PO 12.5 mg BID-WM CATHERINE Administration Atorvastatin Calcium 20 mg 11/11/18 21:00 11/16/18 20:50 Lipitor PO 20 mg HS CATHERINE Administration Carvedilol 3.125 mg 11/11/18 21:00 11/17/18 08:57 Coreg PO 3.125 mg BID CATHERINE Administration Lisinopril/HCTZ 1 tab 11/12/18 09:00 11/17/18 08:56 Prinizide 20-12.5 PO 1 tab DAILY CATHERINE Administration Hydralazine HCl 10 mg 11/12/18 13:21 11/15/18 16:58 Apresoline SLOW IVP 10 mg Q4H PRN Administration SBP GREATER THAN 160 Sodium Chloride 1,000 mls @ 125 mls/hr 11/13/18 22:00 11/17/18 16:35 Normal Saline 0.9% IV Not Given .Q8H CATHERINE Insulin Human Lispro 0 units 11/15/18 08:26 11/17/18 17:37 Humalog SC 9 unit .AGGRESSIVE SLIDING PRN Administration Aggressive Correctional Scale Lorazepam 0.5 mg 11/11/18 20:55 11/11/18 22:09 Ativan PO 0.5 mg Q6H PRN Administration Anxiety/Agitation Metformin HCl 500 mg 11/13/18 08:00 11/17/18 17:36 Glucophage PO 500 mg BID-WM CATHERINE Administration Morphine Sulfate 2 mg 11/11/18 19:52 11/12/18 18:24 Morphine SLOW IVP 2 mg Q1H PRN Administration .SEVERE PAIN Pantoprazole Sodium 40 mg 11/12/18 09:00 11/17/18 08:56 Protonix PO 40 mg DAILY CATHERINE Administration Pioglitazone HCl 30 mg 11/12/18 09:00 11/17/18 08:56 Actos PO 30 mg DAILY CATHERINE Administration Sodium Chloride 10 ml 11/11/18 21:00 11/17/18 08:57 Flush - Normal Saline IVF Not Given Q12HR [facility] Tizanidine HCl 4 mg 11/11/18 19:52 11/14/18 12:29 Zanaflex PO 4 mg Q8H PRN Administration .MUSCLE SPASM Tramadol HCl 50 mg 11/11/18 19:50 11/15/18 08:50 Ultram PO 50 mg Q6H PRN Administration MILD Pain - Exam NAD Eye: anicteric sclera ENT: moist mucosa Neck: supple Heart: RRR Respiratory: CTAB Gastrointestinal: soft Skin: normal turgor Psychiatric: normal affect, normal behavior Hosp A/P (1) Type II diabetes mellitus Status: Chronic (2) Hypotension Status: Resolved - Plan PT/OT, out of bed/ambulate Awaiting Inpt Rehab Continue accuchecks, insulin sliding scale.
[2018-11-17] MEDS: Atorvastatin Calcium 20 MG TAB PO SCH (20:59)
[2018-11-18] MEDS: HYDROcodone/Acetaminophen 5/325 mg Tablet PO PRN (03:28)
[2018-11-18] MEDS: Lorazepam 1 MG TAB PO PRN (03:35)
[2018-11-18] MEDS: Sodium Chloride 0.9% 1,000 ML IV SCH ×2 (04:41→08:52)
[2018-11-18] MEDS: HumaLOG 300 UNITS/3 ML VIAL SC PRN (06:14)
--- NOTE | 2018-11-18 07:11 | PRG ---
DATE OF SERVICE: 11/15/2018 Mr. Silverio is now postop day #4 following lumbar decompression for cauda equina syndrome. His pain in his back has been slightly increasing because he needed to be off pain medications for hypertension. This is corrected and he receive a dose this morning and his pain is already improved. He has been ambulating in the hallways, but we are awaiting rehab placement at [facility]. We will follow up with Case Management. Job ID: [id number]
[2018-11-18] MEDS: Carvedilol 3.125 MG TAB PO SCH (08:51)
[2018-11-18] MEDS: metFORMIN 500 MG TAB PO SCH (08:51)
[2018-11-18] MEDS: Lisinopril/Hydrochlorothiazide 20 mg/12.5 mg Tablet PO SCH (08:51)
[2018-11-18] MEDS: Pioglitazone HCl 15 MG TAB PO SCH (08:51)
[2018-11-18] MEDS: Alogliptin 6.25 MG TAB PO SCH (08:52)
[2018-11-18 15:04] VITALS: BP 98/61; TEMP 98.5
== END 2018-11-18 16:03 | DRG 519 ==
LOC: SURG B 19:12
PROVIDERS: ADMIT Surgery; ATTEND Surgery
PROC: 01NB0ZZ Release Lumbar Nerve, Open Approach (ICD-10-PCS; principal; 2018-11-12)
PROC: 0SB20ZZ Excision of Lumbar Vertebral Disc, Open Approach (ICD-10-PCS; 2018-11-12)
PROC: 01NR0ZZ Release Sacral Nerve, Open Approach (ICD-10-PCS; 2018-11-12)
DX: M48.061 Spinal stenosis, lumbar region without neurogenic claudication (principal); G95.29 Other cord compression; G83.4 Cauda equina syndrome; M54.16 Radiculopathy, lumbar region; I95.9 Hypotension, unspecified; E78.5 Hyperlipidemia, unspecified; I10 Essential (primary) hypertension; M19.90 Unspecified osteoarthritis, unspecified site; R27.0 Ataxia, unspecified; R20.2 Paresthesia of skin; M51.26 Other intervertebral disc displacement, lumbar region; E11.65 Type 2 diabetes mellitus with hyperglycemia
CPT/HCPCS: 36415; 36416; 76000; 80048; 85025; 85027; 85610; 85730; 99204; G0463; J0360; J0690; J1100; J1170; J1815; J2001; J2270; J2405; J2704; J3010; J3370; J3490; S0028

== ENCOUNTER 2019-11-03 08:26 | Outpatient (CLI) | payer MEDICARE, BC ==
--- NOTE | 2019-11-03 10:01 | RAD ---
Lumbar spine: 4 views INDICATIONS:Lumbar radiculopathy. Low back pain. COMPARISON:None FINDINGS: Vertebral bodies maintain height. Moderate degenerative changes are seen with anterior osteophytes an d loss of disc space. Alignment is normally maintained. No evidence of spondylolisthesis. Alignment is maintained with flex ion and extension. Laminectomy defect noted at L3, L4, and L5 levels. No osseous abnormality. No soft tissue abnormality. IMPRESSION: Degenerative and postoperative changes lumbar spine.
--- NOTE | 2019-11-03 10:08 | MRI ---
MRI LUMBAR SPINE WITH AND WITHOUT CONTRAST: DATE: 11/03/2019 HISTORY: 69-year-old male with lumbar radiculopathy COMPARISON: None TECHNIQUE: Multiple sequences obtained in axial and sagittal planes, pre and post IV injection of gadolinium-bas ed contrast agent. FINDINGS: There is an approximately 1.5 x 1.7 cm well-circumscribed lesion partially exophytically protruding f rom the anterolateral surface of the right renal midpole. It is hyperintense on T2 WI. It has intermediate signal intensity on T1 WI. There is questionable heterogeneous enhancement versus artifa ct. For the purposes of this report, it will be assumed that there are 5 lumbar-type vertebrae. Vertebral body heights are maintained. 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 Conus medullaris terminates at L1. No major spondylolisthesis. Mild disc space narrowing at L2-3, L3- 4, and L4-5. No severe disc space narrowing at any level. Midline decompressive laminectomy defects at all levels from L2 through L5-S1. Enhancement and signal abnormality in the posterior paraspinal m usculature throughout those levels consistent with either postoperative edema, granulation tissue, or scar, depending on the timing of the surgery. No clumping of cauda equina. T12-L1:Asymmetrical moderate left facet degenerative hypertrophy encroaches upon left posterior aspec t of spinal canal, mildly displacing the conus to the right along with minimal displacement of left posterior intrathecal cauda equina nerve roots. It also causes mild to moderate left neural foraminal stenosis. Mild right neural foraminal stenosis. No high-grade central spinal canal stenosis. L1-2:Mild ligamentum flavum thickening. Diffuse disc bulge. Mild bilateral neural foraminal stenosis. Mild central spinal canal stenosis. L2-3:In addition to diffuse disc bulge, there is a superimposed broad-based central and bilateral par acentral disc herniation with inferior migration (disc extrusion) reaching the L3 pedicle level, indenting the ventral surface of thecal sac. This is accommodated by the laminectomy defect, such farhan t there is no high-grade central spinal canal stenosis. Mild to moderate bilateral neural foraminal stenosis. L3-4:Diffuse disc bulge indents ventral aspect of thecal sac. At right-central portion of the disc ed ge, there is hyperintense signal on T2 WI with enhancement, consistent with small postsurgical scar or annular fissure. No significant central spinal canal stenosis. Moderate bilateral neural foraminal stenosis. L4-5:Diffuse disc bulge. Focal signal abnormality with enhancement at left lateral aspect of disc bul ge consistent with postsurgical scar or annular fissure. No central spinal canal stenosis. Moderate bilateral neural foraminal stenosis. L5-S1:Nonenhancing material with hypointensity on all pulse sequences in the left subarticular zone ( lateral recess) consistent with a small focal disc herniation, apparently impinging on the left S1 nerve root. Moderate bilateral neural foraminal stenosis. IMPRESSION: 1) status post midline decompressive laminectomies at all levels from L2-3 through L5-S1. 2) small focal left disc herniation possibly impinging on the left S1 nerve root at the left subartic ular zone (left lateral recess) of L5-S1. 3) no high-grade central spinal canal stenosis at any level. 4) lumbar spondylosis with multilevel degenerative disc disease manifested by diffuse disc bulges at all levels from L2-2 through L5-S1, plus central disc herniation at L2-3. 5) a small right renal mass, cystic versus solid. Recommend further evaluation with multiphase CT of abdomen with and without contrast (renal mass protocol).
== END 2019-11-03 08:27 | disposition home or self-care (01) ==
LOC: SCSMRI 08:26
PROVIDERS: ATTEND Surgery
DX: M47.26 Other spondylosis with radiculopathy, lumbar region (principal); M51.16 Intervertebral disc disorders with radiculopathy, lumbar region; N28.89 Other specified disorders of kidney and ureter; M51.27 Other intervertebral disc displacement, lumbosacral region; M51.87 Other intervertebral disc disorders, lumbosacral region; Z98.890 Other specified postprocedural states
CPT/HCPCS: 72120; 72158; 82565

== ENCOUNTER 2020-11-16 10:03 | Day surgery (SDC) | payer MEDICARE, BC ==
[2020-11-15 12:11] VITALS: BMI 26.6
[2020-11-16] MEDS ORDERED: Sodium Chloride 0.9% 100 ML ONE (10:27)
[2020-11-16] MEDS ORDERED: CEFAZOLIN 1 GM VIAL ONE (10:27)
[2020-11-16] MEDS ORDERED: Dexmedetomidine 200 MCG/2 ML VIAL ONE (11:31)
[2020-11-16] MEDS ORDERED: EPINEPHrine 1 MG/ML AMP ONE (11:34)
[2020-11-16] MEDS ORDERED: Bupivacaine PF 0.5% 30 ML VIAL ONE (11:34)
[2020-11-16] MEDS ORDERED: PROPOFOL 200 MG/20 ML VIAL ONE (11:40)
[2020-11-16] MEDS ORDERED: Ketorolac Tromethamine 30 MG/ML VIAL ONE (11:40)
[2020-11-16] MEDS ORDERED: Lidocaine 1% PF 5 ML VIAL ONE (11:40)
[2020-11-16] MEDS ORDERED: Fentanyl 100 MCG/2 ML VIAL ONE (12:11)
== END 2020-11-16 15:15 | disposition home or self-care (01) ==
LOC: SDC 10:03
PROVIDERS: ATTEND Specialist
PROC: 0JH70DZ Insertion of Multiple Array Stimulator Generator into Back Subcutaneous Tissue and Fascia, Open Approach (ICD-10-PCS; principal; 2020-11-16)
PROC: 00HU3MZ Insertion of Neurostimulator Lead into Spinal Canal, Percutaneous Approach (ICD-10-PCS; 2020-11-16)
DX: M96.1 Postlaminectomy syndrome, not elsewhere classified (principal); M54.16 Radiculopathy, lumbar region; G89.4 Chronic pain syndrome; Z79.84 Long term (current) use of oral hypoglycemic drugs; Z79.899 Other long term (current) drug therapy
CPT/HCPCS: 63650 ×2; 63685; 72020; C1778; C1787; C1820; L8689; 76000; J0171; J0690; J1885; J2704; J3010; J3490; S0020

== ENCOUNTER 2021-03-07 11:29 | Outpatient (CLI) | payer MEDICARE, BC ==
[2021-03-07 13:48] LABS: Anion Gap 12 mmol/L (10-20); BUN (Urea Nitrogen) 21 mg/dL (8.4-25.7); Calc. Creatinine Clearance 0 mL/min (70-130); Calcium 8.9 mg/dL (7.8-10.44); Carbon Dioxide 24 mmol/L (23-31); Chloride 107 mmol/L (98-107); Glucose 161 mg/dL (83-110); Potassium 4.1 mmol/L (3.5-5.1); Sodium 139 mmol/L (136-145)
[2021-03-08 11:02] LABS: SARS-CoV-2 PCR by NAA Not Detected (NotDetected)
== END 2021-03-07 11:30 | disposition home or self-care (01) ==
LOC: LABBT 11:29
PROVIDERS: ATTEND Specialist
DX: Z01.812 Encounter for preprocedural laboratory examination (principal); Z20.822 Contact with and (suspected) exposure to COVID-19
CPT/HCPCS: 80048; U0003; U0005

== ENCOUNTER 2021-03-10 10:59 | Day surgery (SDC) | payer MEDICARE, BC ==
[2021-03-08 16:29] VITALS: BMI 26.6
[2021-03-10] MEDS ORDERED: EPINEPHrine 1 MG/ML AMP ONE (12:53)
[2021-03-10] MEDS ORDERED: Bupivacaine PF 0.5% 30 ML VIAL ONE (12:53)
[2021-03-10] MEDS ORDERED: Sodium Chloride 0.9% 100 ML ONE (13:22)
[2021-03-10] MEDS ORDERED: CEFAZOLIN 1 GM VIAL ONE (13:22)
[2021-03-10] MEDS ORDERED: Fentanyl 100 MCG/2 ML VIAL ONE (13:29)
[2021-03-10] MEDS ORDERED: Propofol 1,000 MG/100 ML VIAL IV ONE (13:29)
[2021-03-10] MEDS ORDERED: Midazolam HCl 2 mg/2 ml Vial ONE (13:51)
[2021-03-10] MEDS ORDERED: HYDROcodone/Acetaminophen 5/325 mg Tablet ONE (15:52)
== END 2021-03-10 16:35 | disposition home or self-care (01) ==
LOC: SDC 10:59
PROVIDERS: ATTEND Specialist
PROC: 0JWT0MZ Revision of Stimulator Generator in Trunk Subcutaneous Tissue and Fascia, Open Approach (ICD-10-PCS; principal; 2021-03-10)
DX: G89.4 Chronic pain syndrome (principal); M96.1 Postlaminectomy syndrome, not elsewhere classified; M54.16 Radiculopathy, lumbar region; I10 Essential (primary) hypertension; E78.5 Hyperlipidemia, unspecified; K21.9 Gastro-esophageal reflux disease without esophagitis; E11.42 Type 2 diabetes mellitus with diabetic polyneuropathy; F17.210 Nicotine dependence, cigarettes, uncomplicated; Z79.84 Long term (current) use of oral hypoglycemic drugs; Z79.899 Other long term (current) drug therapy
CPT/HCPCS: 87070; 87205; J0171; J0690; J2250; J2704; J3010; J3370; J3490; S0020

== ENCOUNTER 2022-04-27 11:50 | Observation (INO) | payer MEDICARE, BC ==
[2022-04-26 14:19] VITALS: BMI 26.6
[2022-04-27] MEDS ORDERED: CEFAZOLIN 1 GM VIAL ONE (12:41)
[2022-04-27] MEDS ORDERED: Sodium Chloride 0.9% 100 ML ONE (12:41)
[2022-04-27] MEDS ORDERED: fentaNYL PF 100 MCG/2 ML SYRINGE ONE (14:05)
[2022-04-27] MEDS ORDERED: Midazolam HCl 2 mg/2 ml Vial ONE (14:05)
[2022-04-27] MEDS ORDERED: PROPOFOL 40 ML ONE (14:06)
[2022-04-27] MEDS ORDERED: Famotidine/PF 20 mg/2ml Vial ONE (14:06)
[2022-04-27] MEDS ORDERED: Metoclopramide HCl 10 MG/2 ML VIAL ONE (14:12)
[2022-04-27] MEDS ORDERED: PROPOFOL 200 MG/20 ML VIAL ONE (14:12)
[2022-04-27] MEDS ORDERED: Lidocaine 1% PF 5 ML VIAL ONE (14:12)
[2022-04-27] MEDS ORDERED: Vancomycin 1 GM VIAL ONE (14:14)
[2022-04-27] MEDS ORDERED: Morphine 2 MG/ML VIAL ONE (15:40)
[2022-04-27] MEDS ORDERED: Ondansetron ODT 4 MG TAB PO PRN (15:44)
[2022-04-27] MEDS ORDERED: Bisacodyl 10 MG SUPP PR PRN (15:44)
[2022-04-27] MEDS ORDERED: Bisacodyl 5 MG TAB PO PRN (15:44)
[2022-04-27] MEDS ORDERED: HYDROcodone/Acetaminophen 10/325 mg Tablet PO PRN (15:44)
[2022-04-27] MEDS ORDERED: Senokot S 8.6-50 MG TAB PO PRN (15:44)
[2022-04-27] MEDS ORDERED: Acetaminophen 325 MG TAB PO PRN (16:22)
[2022-04-27] MEDS ORDERED: Dextrose 50% Abboject 50 ML SYRINGE SLOW IVP PRN (16:24)
[2022-04-27] MEDS ORDERED: HumaLOG 300 UNITS/3 ML VIAL SC PRN ×2 (16:24)
[2022-04-27] MEDS ORDERED: Dextrose 5% in Water 1,000 ML IV PRN (16:24)
[2022-04-27 16:30] LABS: #Eosinphils 0.4 thou/uL (0.0-0.7); #Lymphocytes 2.3 thou/uL (1.20-3.40); #Monocytes 0.5 thou/uL (0.11-0.59); #Neutrophils 4.6 thou/uL (1.40-6.50); %Basophils 0.6 % (0.0-1.0); %Eosinophils 5.1 % (0.0-10.0); %Lymphocytes 29.2 % (21.0-51.0); %Monocytes 6.7 % (0.0-10.0); %Neutrophils 58.5 % (42.0-75.0); Hemoglobin 14.1 g/dL (14.0-18.0); Mean Corpuscular HGB CONC 34.5 g/dL (32.0-36.0); Mean Corpuscular Hemoglobin 31.1 pg (27.0-31.0); Mean Corpuscular Volume 90.2 fl (78.0-98.0); Mean Platelet Volume 8.2 fL (7.4-10.4); Platelet Count 215 10x3/uL (130-400); RBC Distribution Width 11.7 % (11.5-14.5); Red Blood Cell (RBC) Count 4.54 mill/uL (4.70-6.10); White Blood Cell (WBC) Count 7.8 10x3/uL (4.8-10.8)
[2022-04-27 16:53] LABS: ALT (SGPT) 15 U/L (8-55); AST (SGOT) 15 U/L (5-34); Albumin 3.8 g/dL (3.4-4.8); Alkaline Phosphatase 94 U/L (40-110); Anion Gap 14 mmol/L (10-20); BUN (Urea Nitrogen) 20 mg/dL (8.4-25.7); Bilirubin, Total 0.5 mg/dL (0.2-1.2); Calc. Creatinine Clearance 98 mL/min (70-130); Carbon Dioxide 21 mmol/L (23-31); Chloride 110 mmol/L (98-107); Estimated GFR 96; Globulin 2.5 g/dL (2.4-3.5); Glucose 136 mg/dL (83-110); Potassium 4.3 mmol/L (3.5-5.1); Protein, Total 6.3 g/dL (5.8-8.1); Sodium 141 mmol/L (136-145)
[2022-04-27 17:25] LABS: SARS-CoV-2 NAA Rapid Test Not Detected (NotDetected)
[2022-04-27] MEDS: HYDROcodone/Acetaminophen 10/325 mg Tablet PO PRN (17:55)
[2022-04-27] MEDS ORDERED: Atorvastatin Calcium 20 MG TAB PO SCH (21:00)
[2022-04-27] MEDS: Sulfameth/Trimethoprim DS 800-160mg TAB PO SCH (21:20)
[2022-04-27] MEDS: metFORMIN 500 MG TAB PO SCH (21:20)
[2022-04-28] MEDS: HYDROcodone/Acetaminophen 10/325 mg Tablet PO PRN (05:07)
[2022-04-28] MEDS: Sulfameth/Trimethoprim DS 800-160mg TAB PO SCH (08:17)
[2022-04-28] MEDS: metFORMIN 500 MG TAB PO SCH (08:17)
[2022-04-28] MEDS ORDERED: hydrALAZINE 10 MG TAB PO SCH (09:00)
[2022-04-28] MEDS ORDERED: Losartan 25 MG TAB PO SCH (09:00)
[2022-04-28] MEDS ORDERED: Empagliflozin 25 MG TAB PO SCH (09:00)
[2022-04-28 10:17] VITALS: BP 199/94; TEMP 97.6
== END 2022-04-28 11:30 | disposition home or self-care (01) ==
LOC: SDC 11:50 → SJJU 15:38
PROVIDERS: ADMIT Specialist; ATTEND Specialist
PROC: 0JPT0MZ Removal of Stimulator Generator from Trunk Subcutaneous Tissue and Fascia, Open Approach (ICD-10-PCS; principal; 2022-04-27)
PROC: 00PV0MZ Removal of Neurostimulator Lead from Spinal Cord, Open Approach (ICD-10-PCS; 2022-04-27)
DX: T85.734A Infection and inflammatory reaction due to implanted electronic neurostimulator, generator, initial encounter (principal); M96.1 Postlaminectomy syndrome, not elsewhere classified; G89.4 Chronic pain syndrome; I10 Essential (primary) hypertension; E78.5 Hyperlipidemia, unspecified; K21.9 Gastro-esophageal reflux disease without esophagitis; E11.42 Type 2 diabetes mellitus with diabetic polyneuropathy; F17.210 Nicotine dependence, cigarettes, uncomplicated; M47.816 Spondylosis without myelopathy or radiculopathy, lumbar region; M46.1 Sacroiliitis, not elsewhere classified; M48.061 Spinal stenosis, lumbar region without neurogenic claudication; M54.50 Low back pain, unspecified; Z79.84 Long term (current) use of oral hypoglycemic drugs; Z79.899 Other long term (current) drug therapy; Z20.822 Contact with and (suspected) exposure to COVID-19; Y75.3 Surgical instruments, materials and neurological devices (including sutures) associated with adverse incidents
CPT/HCPCS: 63661; 63688; 80053; 82962 ×2; 85025; 87070; 87075; 87205; G0378 ×2; U0002; 36415; 36416; J0690; J1815; J2250; J2272; J2704; J2765; J3370; J3371; J3490; S0028

== ENCOUNTER 2022-10-10 07:33 | Outpatient (CLI) | payer MEDICARE, BC | END 2022-10-10 07:34 | disposition home or self-care (01) | LOC: SCSMRI 07:33 | PROVIDERS: ATTEND Family Medicine | DX: M47.22 Other spondylosis with radiculopathy, cervical region (principal) | CPT/HCPCS: 72040; 72141 ==